=== PATIENT | male | born 1980 | race African-American/Black ===

== ENCOUNTER 2018-10-21 20:30 | Emergency (ER) | payer MEDICARE, MEDICAID ==
--- NOTE | 2018-10-21 21:09 | ED ---
HPI Chest Pain - HPI Summary HPI Summary: This patient is a 38 year old M brought in by ambulance to [facility] with a chief complaint of left anterior chest pain chest pain for past couple weeks that worsened tonight with sharp stabbing pains and radiation into the left arm. Pain is rated 6/10 in severity. Pain worsened with breath. Reports palpitations. PMHx of HTN. Reports smoking 2 PPD. - History of Current Complaint Chief Complaint: EDChestPainROMI Time Seen by Provider: 10/21/18 20:40 Hx Obtained From: Patient Onset/Duration: Started Weeks Ago, Worse Since - this evening Pain Intensity: 6 Pain Scale Used: 0-10 Numeric Chest Pain Location: Left Anterior Chest Pain Radiates: Yes Chest Pain Radiates To:: Arm Aggravating Factor(s): Deep Breaths Alleviating Factor(s): Nothing Associated Signs and Symptoms: Positive: Palpitations - Additional Pertinent History Primary Care Physician: [id number] - Allergy/Home Medications Allergies/Adverse Reactions: Allergies Allergy/AdvReac Type Severity Reaction Status Date / Time [place] [[place]] Allergy Unknown Verified 04/21/16 14:21 Reaction Details mayonaise Allergy Nausea Uncoded 06/25/15 13:43 Home Medications: Home Medications Benztropine TAB* [Cogentin TAB*] 1 mg PO BID 10/21/18 [History Confirmed ] Divalproex Sodium 500 mg PO DAILY 10/21/18 [History Confirmed 10/21/18] Fluphenazine IM* 1 dose IM SEE INSTRUCTIONS 10/21/18 [History Confirmed 10/21/18 ] Levothyroxine TAB* [Synthroid TAB*] 75 mcg PO DAILY 10/21/18 [History Confirmed 10/21/18] Lisinopril 20 mg PO DAILY 10/21/18 [History Confirmed 10/21/18] Oxybutynin TAB* [Ditropan TAB*] 5 mg PO DAILY 10/21/18 [History Confirmed ] fluPHENAZine HCL TAB* [Prolixin TAB*] 5 mg PO DAILY 10/21/18 [History Confirmed 10/21/18] hydrOXYzine HCL TAB* [Atarax TAB 50 MG *] 100 mg PO BEDTIME PRN 10/21/18 [ History Confirmed 10/21/18] PMH/Surg Hx/FS Hx/Imm Hx Endocrine/Hematology History: Reports: Hx Diabetes, Hx Thyroid Disease - HYPOTHYROID Denies: Hx Anemia, Hx Unexplained Bleeding Cardiovascular History: Reports: Hx Hypertension Denies: Hx Aneurysm, Hx Angina, Hx Angioplasty, Hx Auto Implanted Cardiovert Defib, Hx Cardiac Arrest, Hx Cardiomegaly, Hx Congenital Heart Disease, Hx Congestive Heart Failure, Hx Coronary Artery Disease, Hx Deep Vein Thrombosis, Hx Embolism, Hx Hypercholesterolemia, Hx Hypotension, Hx Pacemaker/ICD, Hx Peripheral Vascular Disease, Hx Rheumatic Fever, Hx Syncope, Hx Valvular Heart Disease, Other Cardiovascular Problems/Disorders Respiratory History: Reports: Hx Asthma Musculoskeletal History: Reports: Other Musculoskeletal History - FX SKULL 3YO Neurological History: Reports: Hx Seizures - seizure after ? lithium overdose last year per pt's recent H&P Denies: Hx Dementia, Hx Developmental Delay, Hx Headaches, Hx Migraine, Hx Nerve Disease, Hx Spinal Cord Injury, Hx Transient Ischemic Attacks (TIA), Other Neuro Impairments/Disorders Psychiatric History: Reports: Hx Depression, Hx Post Traumatic Stress Disorder, Hx Community Mental Health Tx, Hx Schizophrenia - SCHIZOAFFECTIVE D/O, Hx Bipolar Disorder, Hx of Violent Episodes Against Others, Hx Substance Abuse - marijuana use Denies: Hx Anxiety, Hx Attention Deficit Hyperactivity Disorder, Hx Eating Disorder, Hx Panic Disorder, Hx Inpatient Treatment, Hx Suicide Attempt Infectious Disease History: No Infectious Disease History: Denies: Traveled Outside the [place] in Last 30 Days - Family History Known Family History: Positive: Other - schizophrenia, bipolar - Social History Alcohol Use: Occasionally Hx Substance Use: Yes Substance Use Type: Reports: Marijuana Substance Use Comment - Amount & Last Used: unknown Hx Tobacco Use: Yes Smoking Status (MU): Heavy Every Day Tobacco Smoker Type: Cigarettes Amount Used/How Often: PPD Length of Time of Smoking/Using Tobacco: 10YRS Have You Smoked in the Last Year: Yes Review of Systems Constitutional: Negative Negative: Fever, Chills ENT: Negative Positive: Chest Pain. Negative: Palpitations Negative: Cough All Other Systems Reviewed And Are Negative: Yes Physical Exam - Summary Physical Exam Summary: VITAL SIGNS: Reviewed. GENERAL: Patient is a morbidly obese male who is lying comfortable in the stretcher. Patient is not in any acute respiratory distress. HEAD AND FACE: No signs of trauma. No ecchymosis, hematomas or skull depressions. No sinus tenderness. EYES: PERRLA, EOMI x 2, No injected conjunctiva, no nystagmus. EARS: Hearing grossly intact. Ear canals and tympanic membranes are within normal limits. MOUTH: Oropharynx within normal limits. NECK: Supple, trachea is midline, no adenopathy, no JVD, no carotid bruit, no c- spine tenderness, neck with full ROM CHEST: Symmetric, no tenderness at palpation LUNGS: Clear to auscultation bilaterally. No wheezing or crackles. CVS: Regular rate and rhythm, S1 and S2 present, no murmurs or gallops appreciated. ABDOMEN: Soft, non-tender. No signs of distention. No rebound no guarding, and no masses palpated. Bowel sounds are normal. EXTREMITIES: FROM in all major joints, no edema, no cyanosis or clubbing. NEURO: Alert and oriented x 3. No acute neurological deficits. Speech is normal and follows commands. SKIN: Dry and warm Triage Information Reviewed: Yes Vital Signs On Initial Exam: Initial Vitals Temp Pulse Resp BP Pulse Ox 98.3 F 110 18 114/87 90 10/21/18 20:35 10/21/18 20:35 10/21/18 20:35 10/21/18 20:35 10/21/18 20:35 Vital Signs Reviewed: Yes Diagnostics - Vital Signs Vital Signs Temp Pulse Resp BP Pulse Ox 10/21/18 20:44 114 18 114/87 91 10/21/18 20:43 22 10/21/18 20:35 98.3 F 110 18 114/87 90 - Laboratory Result Diagrams: 10/21/18 21:07 10/21/18 21:07 Lab Statement: Any lab studies that have been ordered have been reviewed, and results considered in the medical decision making process. - Radiology CXR Radiology Interpretation Completed By: ED Physician Summary of Radiographic Findings: No acute process. Pending official report. - EKG 2032 Cardiac Rate: Tachycardia - 107 EKG Rhythm: Sinus Tachycardia Summary of EKG Findings: Normal axis. Normal interval. No ischemic changes. Chest Pain Course/Dx - Course Course Of Treatment: 38 year old M brought in by ambulance to [facility] with a chief complaint of left anterior chest pain chest pain for past couple weeks that worsened tonight with sharp stabbing pains and radiation into the left arm. CXR reveals no acute process , pending offical report. EKG is NSR at 107 BPM with normal axis, normal interval, and no ischemic changes. Bloodwork obtained troponin is 0.00. At 22:20, patient became agitated and began walking around the emergency department and threatening staff. Patient requesting to go home. Patient will be discharged home. - Diagnoses Provider Diagnoses: Chest pain Discharge - Sign-Out/Discharge Documenting (check all that apply): Patient Departure - discharge Patient Received Moderate/Deep Sedation with Procedure: No - Discharge Plan Condition: Stable Disposition: HOME Patient Education Materials: Chest Pain (ED) Referrals: Nelson Francis MD [Primary Care Provider] - 2 Days Additional Instructions: RETURN TO THE EMERGENCY DEPARTMENT FOR CHANGING OR WORSENING SYMPTOMS. - Billing Disposition and Condition Condition: STABLE Disposition: Home - Attestation Statements Document Initiated by Demetris: Yes Documenting Scribe: Nevin Kearney Provider For Whom Demetris is Documenting (Include Credential): Shara Kingsley MD Scribe Attestation: Nevin Ahuja, scribed for Shara Kingsley MD on 10/22/18 at 0006. Scribe Documentation Reviewed: Yes Provider Attestation: The documentation as recorded by the Nevin grant accurately reflects the service I personally performed and the decisions made by Manoj nava MD Status of Scribe Document: Viewed
[2018-10-21 21:15] LABS: ABS Basophils 0.1 10^3/ul (0-0.2); ABS Eosinophils 0.1 10^3/ul (0-0.6); ABS Lymphocytes 1.8 10^3/ul (1.0-4.8); ABS Monocytes 0.9 10^3/ul (0-0.8); ABS Neutrophils 13.4 10^3/ul (1.5-7.7); Eosinophil % 0.9 %; Hematocrit 43 % (42-52); Hemoglobin 13.5 g/dL (14.0-18.0); Lymphocyte % 11.2 %; Mean Corpuscular HGB Conc 32 g/dL (31-36); Mean Corpuscular Hemoglobin 26 pg (27-31); Mean Corpuscular Volume 83 fL (80-94); Mean Platelet Volume 8.2 fL (7.4-10.4); Nucleated Red Blood Cells % 0.1; Platelet Count 305 10^3/uL (150-450); Red Blood Count 5.18 10^6 /uL (4.18-5.48); Red Cell Distribution Width 16 % (10-15); White Blood Count 16.3 10^3/uL (3.5-10.8)
[2018-10-21 21:26] LABS: Activated Partial Thrombo Time 35.9 seconds (26.0-38.0); INR 1.17 (0.82-1.09)
[2018-10-21 21:32] LABS: Albumin 3.9 g/dL (3.2-5.2); Albumin/Globulin Ratio 1.1 (1-3); BUN/Creatinine Ratio 13.7 (8-20); Calcium 9.5 mg/dL (8.6-10.3); EGFR African American 108.5 (>60); EGFR Non-African American 89.7 (>60); Globulin 3.5 g/dL (2-4); Magnesium 2.2 mg/dL (1.9-2.7); Potassium 3.7 mmol/L (3.5-5.0); Total Bilirubin 0.6 mg/dL (0.2-1.0); Total Protein 7.4 g/dL (6.4-8.9)
[2018-10-21 22:37] VITALS: BP 0/0
== END 2018-10-21 22:20 | disposition home or self-care (01) ==
LOC: ED 20:30
DX: R07.89 Other chest pain (principal); R00.2 Palpitations; I10 Essential (primary) hypertension; F17.210 Nicotine dependence, cigarettes, uncomplicated; E11.9 Type 2 diabetes mellitus without complications; E03.9 Hypothyroidism, unspecified; F43.10 Post-traumatic stress disorder, unspecified
CPT/HCPCS: 36415; 71045; 80053; 83605; 83735; 84484; 85025; 85379; 85610; 85730; 93005; 99284

== ENCOUNTER 2019-05-14 03:05 | Emergency (ER) | payer MEDICARE, MEDICAID ==
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
[2019-05-14 03:29] LABS: Hematocrit 42 % (42-52); Hemoglobin 13.9 g/dL (14.0-18.0); Mean Corpuscular HGB Conc 33 g/dL (31-36); Mean Corpuscular Hemoglobin 30 pg (27-31); Mean Corpuscular Volume 92 fL (80-94); Mean Platelet Volume 8.1 fL (7.4-10.4); Platelet Count 255 10^3/uL (150-450); Red Blood Count 4.57 10^6 /uL (4.18-5.48); Red Cell Distribution Width 17 % (10-15); White Blood Count 11.1 10^3/uL (3.5-10.8)
[2019-05-14 03:44] LABS: ALT 23 U/L (7-52); AST 20 U/L (13-39); Albumin/Globulin Ratio 1.3 (1-3); Alkaline Phosphatase 72 U/L (34-104); Anion Gap 7 mmol/L (2-11); BUN/Creatinine Ratio 16.9 (8-20); Blood Urea Nitrogen 14 mg/dL (6-24); CO2 Carbon Dioxide 32 mmol/L (22-32); Calcium 9.4 mg/dL (8.6-10.3); Chloride 98 mmol/L (101-111); EGFR African American 126.8 (>60); EGFR Non-African American 104.8 (>60); Globulin 3.2 g/dL (2-4); Glucose 96 mg/dL (70-100); Potassium 4.8 mmol/L (3.5-5.0); Sodium 137 mmol/L (135-145); Total Protein 7.2 g/dL (6.4-8.9)
[2019-05-14 03:50] LABS: Acetaminophen < 15 mcg/mL; Alcohol < 10 mg/dL (<10); Salicylate < 2.50 mg/dL (<30)
[2019-05-14 03:56] LABS: Polychromasia 1+
[2019-05-14 03:57] LABS: ABS Eosinophils 0.3 10^3/ul (0-0.6); ABS Lymphocytes 1.9 10^3/ul (1.0-4.8); ABS Monocytes 1.1 10^3/ul (0-0.8); ABS Neutrophils 7.8 10^3/ul (1.5-7.7); Eosinophil % 2.4 %; Lymphocyte % 17.1 %; Nucleated Red Blood Cells % 0.1
[2019-05-14 04:05] LABS: TSH (Thyroid Stimulating Horm) 1.51 mcIU/mL (0.34-5.60)
[2019-05-14] MEDS ORDERED: Nicotine* 4MG (FRUIT FLAVOR) GUM PO PRN (04:11)
[2019-05-14 04:33] LABS: Urine Appearance Clear; Urine Bilirubin Negative (Negative); Urine Blood Negative (Negative); Urine Color Yellow; Urine Glucose Negative (Negative); Urine Ketones Negative (Negative); Urine Nitrite Negative (Negative); Urine Protein Negative (Negative); Urine Specific Gravity 1.005 (1.010-1.030); Urine Urobilinogen Negative (Negative)
[2019-05-14 05:02] LABS: Urine Benzodiazepine Screen None Detected (None Detect); Urine Opiates Screen None Detected (None Detect)
[2019-05-14] MEDS ORDERED: hydrOXYzine HCL TAB* 50 MG PO ONE (05:31)
[2019-05-14 06:36] VITALS: BP 138/94
== END 2019-05-14 06:35 | disposition home or self-care (01) ==
LOC: ED 03:05
DX: F25.9 Schizoaffective disorder, unspecified (principal); E11.9 Type 2 diabetes mellitus without complications; Z79.84 Long term (current) use of oral hypoglycemic drugs; I10 Essential (primary) hypertension; J45.909 Unspecified asthma, uncomplicated; Z88.8 Allergy status to other drugs, medicaments and biological substances; Z91.018 Allergy to other foods; F17.210 Nicotine dependence, cigarettes, uncomplicated
CPT/HCPCS: 36415; 80053; 80307; 80320; 80329; 81003; 84443; 85025; 85060; 99284; A9270-GY; G0480